=== PATIENT | male | born 1980 | race Caucasian/White ===

== ENCOUNTER 2017-02-22 23:25 | Emergency (ER) | payer OTHER ==
[~2017-02-22 23:25] MED LIST: BACTRIM DS TABL1 TA2 PO; KEFLEX500 M1 PO; LEXAPRO PO; LISINOPRIL10 MG PO; TYLENOL #3 PO
== END 2017-02-23 00:27 | disposition home or self-care (01) ==
LOC: SED 23:25
DX: S01.01XA Laceration without foreign body of scalp, initial encounter (principal); I10 Essential (primary) hypertension; W45.8XXA Other foreign body or object entering through skin, initial encounter; Y92.488 Other paved roadways as the place of occurrence of the external cause
CPT/HCPCS: 12031; 99283